=== PATIENT | male | born 1925 | race Caucasian/White ===

== ENCOUNTER 2016-12-16 17:29 | Inpatient (IN) | payer MEDICARE, OTHER ==
[~2016-12-16] VITALS: Ht 167.6 cm; Wt 69.8 kg
[~2016-12-16 17:29] MED LIST: /AMLO25TA PO; /MOXI40TA PO; /PANT40TA PO; /TAMS4CA PO; ADVA230A INH; ALTA10CA3 PO; AMLO25TA PO; AUGM875T27 PO; BENA25CA PO; FLOM5CAP PO; FOLI1TAB2 PO; FOLI1TAB86 PO; IPRASOL4 INH; LASI40TA PO; MUCI600T34 PO; PLAV75TA38 PO; PRED10TA PO; PRED20TA PO; PRED5TAB PO; TIOT18INH INH; TYLE325T5 PO; XOPEAER INH; [UNRECOGNIZED DRUG - CODE] PO; [UNRECOGNIZED DRUG - OTHER] PO; o2; plavix PO
[2016-12-16] MEDS ORDERED: vit b12 (17:55)
[2016-12-16] MEDS ORDERED: LASI20TA PO (17:55)
[2016-12-16] MEDS: IPRATROPIUM 0.5MG/ALBUTEROL 2.5MG INH SOL UD 3ML (DUONEB)(J7620) NEB PRN ×3 (18:18→19:16)
[2016-12-16 18:21] LABS: ABG pH (ARTERIAL) 7.404 UNITS (7.350-7.450)
[2016-12-16 18:22] LABS: ABG BASE EXCESS 2.4 (-2.0-2.0); ABG HCO3 27.5 MEQ/L (22.0-26.0); ABG PARTIAL PRESSURE O2 67.5 mmHg (75.0-100.0); ABG STANDARD HCO3 26.5 MEQ/L (22.0-26.0); ABG TOTAL CO2 28.9 MEQ/L (23.0-31.0)
[2016-12-16 18:34] LABS: MEAN CORPUSCULAR HEMOGLOBIN 32.5 pg (27.0-33.0); MEAN CORPUSCULAR VOLUME 104.7 fl (80.0-96.0); PLATELET COUNT, AUTOMATED 360 k/mm3 (150-450); RED CELL DISTRIBUTION WIDTH 12.4 % (11.5-14.5)
[2016-12-16 18:48] LABS: ALKALINE PHOSPHATASE 86 U/L (45-117); ALT/SGPT 12 U/L (12-78); ANION GAP 5 MEQ/L (8-16); AST/SGOT 12 U/L (15-37); BILIRUBIN,DIRECT 0.1 MG/DL (0.0-0.2); BILIRUBIN,TOTAL 0.4 MG/DL (0.2-1.0); BLOOD UREA NITROGEN 27 MG/DL (7-18); CALCIUM LEVEL 8.6 MG/DL (8.8-10.2); CARBON DIOXIDE LEVEL 32 MEQ/L (21-32); CHLORIDE LEVEL 100 MEQ/L (98-107); CREATININE FOR GFR 1.17 MG/DL (0.70-1.30); GLOMERULAR FILTRATION RATE > 60.0 (>35); GLUCOSE, FASTING 144 MG/DL (83-110); POTASSIUM SERUM 4.8 MEQ/L (3.5-5.1); SODIUM LEVEL 137 MEQ/L (136-145); TOTAL PROTEIN 7.3 GM/DL (6.4-8.2)
--- NOTE | 2016-12-16 19:00 | REP ---
CHEST, TWO VIEWS: REASON: Cough and dyspnea. COMPARISON: 12/30/2014 AP and lateral views were obtained. The technique utilized in obtaining the radiograph has magnified the cardiac silhouette and accentuated the interstitial markings. There is a diffuse increase in the interstitial markings throughout the lung choudhury representing a change from prior exam. There is bilateral perihilar or peribronchial cuffing. There is blunting of the left CP angle status quo. IMPRESSION: Chronic changes as described above, however, I can not rule out the possibility of acute mild interstitial edema superimposed on chronic change and I can not rule out the possibility of an acute left lower lobe pneumonia. Signed by Raman Ruffin DO 12/16/2016 07:04 P
[2016-12-16] MEDS ORDERED: cefTRIAXone SOD 2 GM in D5W MINI-BAG PLUS 50 ML IV ONE (19:45)
[2016-12-16] MEDS ORDERED: DOXYCYCLINE HYCLATE 100 MG in D5W MINI-BAG PLUS 100 ML IV ONE (19:45)
[2016-12-16] MEDS ORDERED: SODIUM CHLORIDE 0.9% 1000 ML IV ONE (20:00)
[2016-12-16] MEDS ORDERED: ACETAMINOPHEN TAB 650MG DOSE (2X325MG) PO ONE (20:00)
[2016-12-16 20:25] LABS: BANDS 3 % (< 11)
[2016-12-16 20:26] LABS: ANISOCYTOSIS 1+; HYPOCHROMASIA 1+
[2016-12-16] MEDS ORDERED: PRED5TA PO (20:26)
[2016-12-16] MEDS ORDERED: ONDANSETRON 4MG/2ML VIAL (J2405) IV PRN (20:30)
[2016-12-16] MEDS ORDERED: IPRATROPIUM 0.5MG/ALBUTEROL 2.5MG INH SOL UD 3ML (DUONEB)(J7620) NEB PRN (20:30)
[2016-12-16] MEDS ORDERED: ONDANSETRON 4 MG TAB (S0181) PO PRN (20:30)
[2016-12-16] MEDS ORDERED: IPRASOL4 INH (20:32)
[2016-12-16] MEDS ORDERED: CLOP75TA2 PO (20:32)
[2016-12-16] MEDS ORDERED: POTA10CA PO (20:32)
[2016-12-16] MEDS ORDERED: VITA100072 PO (20:32)
[2016-12-16] MEDS ORDERED: ACET-654 PO (20:32)
[2016-12-16] MEDS ORDERED: FLOM5CAP PO (20:32)
[2016-12-16] MEDS ORDERED: FOLI1TAB2 PO (20:32)
[2016-12-16] MEDS ORDERED: ASCO500T PO (20:32)
[2016-12-16] MEDS ORDERED: RAMI10CA PO (20:32)
[2016-12-16] MEDS ORDERED: FURO20TA2 PO (20:32)
--- NOTE | 2016-12-16 20:45 | HPEPDOC ---
Medical History and Physical Date of Admission December 16, 2016 at 20:42 History and Physical HISTORY AND PHYSICAL Date of admission: 12/16/2016 PCP: Dr. Deny Chand in [place] Chief complaint: Short of breath HPI: 89-year-old male with chronic hypoxic respiratory failure on 4 L home O2, COPD, CAD status post NC and cardiac stents, history of left lower lobe lung cancer status post RFA, history of prostate cancer status post radiation treatment, history of skin cancer status post resection and graft, hypertension , BPH, TIA who presented with shortness of breath. He usually spends the summer in the [facility], and he had recently relocated up here and had been feeling well. This morning, he noticed that he was short of breath and was coughing quite a bit. He denies any sick contacts, and has continued to use his home O2 at 4 L. He reports that when he began having trouble today, he used his nebulizers, which helped a little bit. He has not found anything that makes the breathing worse. He denies any sick contacts. In the ambulance and in the ER, he has received steroids, antibiotics, and 3 nebulizer treatments. Past medical history: chronic hypoxic respiratory failure on 4 L home O2, COPD, CAD status post NC and cardiac stents, history of left lower lobe lung cancer status post RFA, history of prostate cancer status post radiation treatment, history of skin cancer status post resection and graft, hypertension, BPH, TIA Past surgical history: Cardiac stents, cholecystectomy Family history: multiple types of cancer Social history: The patient's primary residence is in [place]. He fatima up here in [place]. He had recently arrived into the [facility], and he is staying with his grandson. He states that he quit smoking approximately 40 years ago and does not drink any alcohol. Allergies: Celecoxib, codeine Review of systems: General: Positive for fever, negative for chills Eyes: Negative for vision changes and ocular discharge ENT: Negative for sore throat and nose bleed Cardiovascular: Negative for chest pain and palpitations Respiratory: Positive for cough, shortness of breath, wheezing GI: Negative for nausea, vomiting, diarrhea Musculoskeletal: Negative for neck and back pain Skin: Negative for rash Neuro: Negative for headache, dizziness, numbness, tingling Psych: Negative for depression and suicidal ideation Endocrine: Negative for polyuria : Negative for dysuria Heme: Negative for bleeding Home meds: See below Physical exam: Vital signs: Vital Sign - Last 24 Hours 12/16/16 12/16/16 12/16/16 12/16/16 17:44 17:56 17:59 18:14 Temp 100.8 Pulse 112 118 126 Resp 24 B/P (MAP) 182/80 (114) 180/77 (111) Pulse Ox 89 91 12/16/16 12/16/16 12/16/16 12/16/16 18:18 18:19 18:19 18:20 Pulse 124 114 125 Resp 18 Pulse Ox 91 O2 Delivery Nasal Cannula O2 Flow Rate 4.0 12/16/16 12/16/16 12/16/16 12/16/16 18:29 18:34 18:37 18:38 Pulse 128 B/P (MAP) 170/77 (108) Pulse Ox 92 O2 Flow Rate 4.0 FiO2 93 12/16/16 12/16/16 12/16/16 12/16/16 18:44 18:52 18:59 19:07 Pulse 124 126 B/P (MAP) 164/69 (100) 152/74 (100) Pulse Ox 93 92 12/16/16 12/16/16 12/16/16 19:14 19:22 19:36 Temp 100.1 Pulse 132 Resp 22 B/P (MAP) 152/71 (98) Pulse Ox 93 O2 Delivery Nasal Cannula O2 Flow Rate 4.0 Gen.: awake, alert, no acute distress Eyes: Extraocular movements intact, normal sclera ENT: Moist mucous membranes Cardiovascular: Regular rhythm but tachycardic Lungs: Diffuse rhonchi with prolonged expiratory phase Abdomen: Soft, NT/ND, normal BS Musculoskeletal: normal range of motion Extremities: No peripheral edema Neuro: alert and oriented 3, normal speech, no focal deficits Psych: Normal mood with congruent affect Labs and radiology: See below WBC 15.0 Lactate 1.3 Chest x-ray cannot exclude left lower lobe pneumonia Blood cultures pending Respiratory virus panel pending Assessment and plan: 89-year-old male with chronic hypoxic respiratory failure on 4 L home O2, COPD, CAD status post NC and cardiac stents, history of left lower lobe lung cancer status post RFA, history of prostate cancer status post radiation treatment, history of skin cancer status post resection and graft, hypertension, BPH, TIA who presented with shortness of breath and is admitted with community-acquired pneumonia as well as acute COPD exacerbation. 1. Community acquired pneumonia: The patient's chest x-ray is unable to exclude a pneumonia in the left lower lobe. Although this is where he had an RFA for his prior lung cancer, in the setting of a fever and elevated white count, I am concerned that this represents a pneumonia. We will place the patient on Levaquin, and check a sputum culture. Blood cultures and respiratory virus panel are already pending, which we will follow up. We will also place the patient on some gentle IV fluids. 2. COPD exacerbation: I suspect this is secondary to his underlying pneumonia. We will continue him on DuoNeb's and Solu-Medrol. Holding home prednisone. 3. Chronic hypoxic respiratory failure: The patient is currently using his home 4 L, which we'll continue. Holding home prednisone while on Solu-Medrol. 4. CAD status post NC and cardiac stents: The patient denies any chest pain. Continue home Plavix. Patient does not report a beta tyra or a statin, which should be addressed by his primary physicians. 5. BPH: Continue home Flomax. 6. Hypertension: Continue home DOM inhibitor and Lasix. DVT prophylaxis: Lovenox Dispo: admit as an inpatient to the service of Dr. Romero CODE STATUS: Full code Vital Signs Vital Signs Date Time Temp Pulse Resp B/P (MAP) Pulse Ox O2 Delivery O2 Flow Rate FiO2 12/16/16 19:36 100.1 22 Nasal Cannula 4.0 12/16/16 19:14 132 93 12/16/16 18:34 93 Laboratory Data Labs 24H Laboratory Tests 2 12/16/16 17:48: Neutrophils 94H, Band Neutrophils 3, Lymphocytes (Manual) 1L, Monocytes (Manual ) 2, Platelet Estimate NORMAL, Hypochromasia 1+, Anisocytosis 1+, Anion Gap 5L, Glomerular Filtration Rate > 60.0, Lactic Acid Level 1.3, Calcium Level 8.6L, Aspartate Amino Transf (AST/SGOT) 12L, Alanine Aminotransferase (ALT/SGPT) 12, Alkaline Phosphatase 86, Total Bilirubin 0.4, Direct Bilirubin 0.1, Total Creatine Kinase 45, Creatine Kinase MB 1.6, Creatine Kinase MB Relative Index 3.55, Troponin I 0.02, B-Type Natriuretic Peptide 71.6, Total Protein 7.3, Albumin 3.0L, Albumin/Globulin Ratio 0.70L, Thyroid Stimulating Hormone (TSH) 0.397, Thyroxine (T4) 9.0 12/16/16 18:07: Blood Gas Bicarbonate Standard 26.5H, Arterial Blood pH 7.404, Arterial Blood Partial Pressure CO2 45.0, Arterial Blood Partial Pressure O2 67.5L, Arterial Blood Total CO2 28.9, Arterial Blood HCO3 27.5H, Arterial Blood Base Excess 2.4H , Arterial Blood Oxygen Saturation 92.5L CBC/BMP Laboratory Tests 12/16/16 17:48 Red Blood Count 3.20 L, Mean Corpuscular Volume 104.7 H, Mean Corpuscular Hemoglobin 32.5, Mean Corpuscular Hemoglobin Concent 31.0 L, Red Cell Distribution Width 12.4 Microbiology Microbiology 12/16/16 Blood Culture, Received Pending 12/16/16 Blood Culture, Received Pending 12/16/16 Respiratory Virus Panel (PCR) (KATHY), Received Pending Home Medications Scheduled Albuterol/Ipratropium (Ipratropium [place]/Albut 0.5-2.5 (3) mg/3Ml) 1 Deisi Deisi, 1 DEISI INH TID Ascorbic Acid (Ascorbic Acid) 500 Mg Tab, 500 MG PO DAILY Clopidogrel Bisulfate (Clopidogrel) 75 Mg Tab, 75 MG PO DAILY Cyanocobalamin (Vitamin B12) 1,000 Mcg Tab, 1,000 MCG PO DAILY Folic Acid (Folic Acid) 1 Mg Tab, 1 MG PO DAILY Furosemide (Furosemide) 20 Mg Tab, 20 MG PO DAILY Potassium Chloride (Klor-Con M10) 10 Meq Tabcr, 10 MEQ PO DAILY Prednisone (Prednisone) 5 Mg Tab, 5 MG PO QPM DINNER TIME Ramipril (Ramipril) 10 Mg Cap, 10 MG PO DAILY Tamsulosin Hydrochloride (Flomax) 0.4 Mg Cap, 0.4 MG PO QPM DINNER TIME Scheduled PRN Acetaminophen (Acetaminophen) 325 Mg Tab, 650 MG PO Q6H PRN for PAIN Allergies Coded Allergies: Celecoxib (Verified Allergy, Unknown, 10/21/12) Codeine (Verified Adverse Reaction, Mild, NAUSEATED, 10/21/12) AYSHA KRUSE December 16, 2016 20:45
--- NOTE | 2016-12-16 20:53 | ECGEPIP ---
Stationary ECG Study [facility] - ED Test Date: 2016-12-16 Pat Name: CIARA RIVERA Department: Room: - Gender: M Pick Out Hand: rn : 1925 Requested By: YVONNE Atwood Order Number: [id number] Reading MD: Bradley Mendoza Measurements Intervals [place] Rate: 120 P: [place]: 0 QRS: -42 QRSD: 113 T: 35 QT: 286 QTc: 405 Interpretive Statements SINUS TACHYCARDIA WITH FIRST DEGREE AV BLOCK WITH PREMATURE VENTRICULAR CONTRACTIONS LEFT AXIS DEVIATION MODERATE IVCD POSSIBLE ANTERIOR MYOCARDIAL INFARCTION, OF INDETERMINATE AGE Electronically Signed On 12-16-2016 20:53:44 EDT by Bradley Mendoza
[2016-12-16] MEDS: TAMSULOSIN 0.4 MG CAP PO SCH (21:16)
[2016-12-16 21:59] VITALS: BP 131/60
[2016-12-16] MEDS: NS 1,000 ML IV SCH (23:04)
[2016-12-16] MEDS: methylPREDNISolone INJ 125 MG/2 ML VIAL (J2930) IV SCH (23:04)
[2016-12-16 23:59] VITALS: BP 100/59
[2016-12-17] VITALS (7 sets, daily range): BP systolic 117–134; BP diastolic 60–72
[2016-12-17] MEDS: LevoFLOXacin IV 750 MG in APPROPRIATE DILUENT 1 EA IV SCH (00:04)
[2016-12-17] MEDS: IPRATROPIUM 0.5MG/ALBUTEROL 2.5MG INH SOL UD 3ML (DUONEB)(J7620) NEB SCH ×4 (02:00→20:32)
[2016-12-17 05:52] LABS: LARGE UNSTAINED CELL % 0.1 % (0.0-4.0); LYMPH # 0.1 K/mm3 (1.5-4.5); LYMPH % 0.8 % (24.0-44.0); MEAN CORPUSCULAR HEMOGLOBIN 32.7 pg (27.0-33.0); MEAN CORPUSCULAR HGB CONC 31.5 g/dl (32.0-36.5); MEAN CORPUSCULAR VOLUME 103.9 fl (80.0-96.0); MONO # 0.3 K/mm3 (0.0-0.8); NEUTROPHILS # 13.1 K/mm3 (1.8-7.7); PLATELET COUNT, AUTOMATED 314 k/mm3 (150-450); RED CELL DISTRIBUTION WIDTH 12.5 % (11.5-14.5); WHITE BLOOD COUNT 13.5 K/mm3 (4.0-10.0)
[2016-12-17] MEDS: NS 1,000 ML IV SCH ×2 (05:53→18:13)
[2016-12-17] MEDS: methylPREDNISolone INJ 125 MG/2 ML VIAL (J2930) IV SCH ×3 (05:53→21:02)
[2016-12-17 06:08] LABS: ANION GAP 6 MEQ/L (8-16); BLOOD UREA NITROGEN 24 MG/DL (7-18); CALCIUM LEVEL 8.4 MG/DL (8.8-10.2); CARBON DIOXIDE LEVEL 31 MEQ/L (21-32); CHLORIDE LEVEL 102 MEQ/L (98-107); CREATININE FOR GFR 1.16 MG/DL (0.70-1.30); GLOMERULAR FILTRATION RATE > 60.0 (>35); GLUCOSE, FASTING 168 MG/DL (83-110); POTASSIUM SERUM 4.9 MEQ/L (3.5-5.1); SODIUM LEVEL 139 MEQ/L (136-145)
[2016-12-17] MEDS ORDERED: FUROSEMIDE 20 MG TAB PO SCH (09:00)
[2016-12-17] MEDS: ENOXAPARIN 40 MG/0.4 ML SYRINGE (J1650) SC SCH (09:31)
[2016-12-17] MEDS: RAMIPRIL 5 MG CAP PO SCH (09:31)
[2016-12-17] MEDS: ASCORBIC ACID 500 MG TAB PO SCH (09:31)
[2016-12-17] MEDS: FOLIC ACID 1 MG TAB PO SCH (09:31)
[2016-12-17] MEDS: CYANOCOBALAMIN 500 MCG TAB PO SCH (09:31)
[2016-12-17] MEDS: CLOPIDOGREL 75 MG TAB PO SCH (09:31)
[2016-12-17] MEDS: POTASSIUM CHLORIDE 10 MEQ SR TABLET PO SCH (09:31)
--- NOTE | 2016-12-17 15:46 | IPNPDOC ---
Text Note Date of Service The patient was seen on 12/17/16. NOTE Subjective: Pt states dyspnea is improving. Denies CP/palpitations. Objective: Vitals: (see below) General: No acute distress, laying comfortably in bed. HEENT: Moist mucous membranes. Neck: No JVD or lymphadenopathy Cardiac: RRR, No murmurs Pulm: Coarse crackles b/l bases. Mild exp wheezing. No rhonchi Abd: NT/ND + BS Ext: No edema or cyanosis Labs (see below) Images: CXR 12/16/16 IMPRESSION: Chronic changes as described above, however, I can not rule out the possibility of acute mild interstitial edema superimposed on chronic change and I can not rule out the possibility of an acute left lower lobe pneumonia. Assessment/Plan 1. Sepsis 2/2 CAP - improving. On Levaquin and IVF. Afebrile now. 4L NC at baseline. 2. Advanced COPD with exacerbation on 4L NC at home. Cont nebs and treatment of pneumonia. Cont steroids. 3. H/o CAD s/p PCI - on plavix. Need statin and BB addressed by PCP. 4. HTN - on ACEi., d/c lasix for now. DVT prophy: Lovenox. Prognosis guarded given sepsis in setting of severe COPD and h/o CAD. VS,Fishbone, I+O VS, Fishbone, I+O Laboratory Tests 12/16/16 17:48 Red Blood Count 3.20 L, Mean Corpuscular Volume 104.7 H, Mean Corpuscular Hemoglobin 32.5, Mean Corpuscular Hemoglobin Concent 31.0 L, Red Cell Distribution Width 12.4 12/17/16 05:25 Red Blood Count 2.82 L, Mean Corpuscular Volume 103.9 H, Mean Corpuscular Hemoglobin 32.7, Mean Corpuscular Hemoglobin Concent 31.5 L, Red Cell Distribution Width 12.5, Neutrophils (%) (Auto) 97.0 H, Lymphocytes (%) (Auto) 0.8 L, Monocytes (%) (Auto) 2.0, Eosinophils (%) (Auto) 0.0, Basophils (%) (Auto ) 0.0, Neutrophils # (Auto) 13.1 H, Lymphocytes # (Auto) 0.1 L, Monocytes # ( Auto) 0.3, Eosinophils # (Auto) 0.0, Basophils # (Auto) 0.0, Calcium Level 8.4 L Vital Signs Date Time Temp Pulse Resp B/P (MAP) Pulse Ox O2 Delivery O2 Flow Rate FiO2 12/17/16 12:00 97.9 82 18 132/68 (89) 96 Nasal Cannula 4.0 12/16/16 20:30 91 I&O- Last 24 Hours up to 6 AM 12/17/16 05:59 Intake Total 1200 ml Output Total 100 ml Balance 1100 ml ZACARIAS MATTHEW MD December 17, 2016 15:46
[2016-12-17] MEDS: TAMSULOSIN 0.4 MG CAP PO SCH (21:02)
[2016-12-17] MEDS: ACETAMINOPHEN TAB 650MG DOSE (2X325MG) PO PRN (23:04)
[2016-12-18] MEDS: IPRATROPIUM 0.5MG/ALBUTEROL 2.5MG INH SOL UD 3ML (DUONEB)(J7620) NEB SCH ×4 (01:37→23:02)
[2016-12-18 04:05] VITALS: BP 140/76
[2016-12-18] MEDS: methylPREDNISolone INJ 125 MG/2 ML VIAL (J2930) IV SCH ×3 (06:06→21:26)
[2016-12-18 06:17] LABS: ANION GAP 3 MEQ/L (8-16); BLOOD UREA NITROGEN 24 MG/DL (7-18); CALCIUM LEVEL 8.3 MG/DL (8.8-10.2); CARBON DIOXIDE LEVEL 31 MEQ/L (21-32); CHLORIDE LEVEL 104 MEQ/L (98-107); CREATININE FOR GFR 1.04 MG/DL (0.70-1.30); EOS % 0.1 % (0.0-3.0); GLOMERULAR FILTRATION RATE > 60.0 (>35); GLUCOSE, FASTING 131 MG/DL (83-110); LARGE UNSTAINED CELL # 0.1 K/mm3 (0.0-0.4); LARGE UNSTAINED CELL % 0.8 % (0.0-4.0); LYMPH # 0.2 K/mm3 (1.5-4.5); LYMPH % 1.6 % (24.0-44.0); MEAN CORPUSCULAR HGB CONC 31.8 g/dl (32.0-36.5); MEAN CORPUSCULAR VOLUME 103.8 fl (80.0-96.0); MONO # 0.4 K/mm3 (0.0-0.8); MONO % 3.8 % (0.0-5.0); NEUTROPHILS # 8.9 K/mm3 (1.8-7.7); NEUTROPHILS % 93.7 % (36.0-66.0); PLATELET COUNT, AUTOMATED 307 k/mm3 (150-450); POTASSIUM SERUM 4.8 MEQ/L (3.5-5.1); RED CELL DISTRIBUTION WIDTH 12.4 % (11.5-14.5); SODIUM LEVEL 138 MEQ/L (136-145); WHITE BLOOD COUNT 9.4 K/mm3 (4.0-10.0)
[2016-12-18 08:00] VITALS: BP 139/74
[2016-12-18] MEDS: POTASSIUM CHLORIDE 10 MEQ SR TABLET PO SCH (10:38)
[2016-12-18] MEDS: ENOXAPARIN 40 MG/0.4 ML SYRINGE (J1650) SC SCH (10:38)
[2016-12-18] MEDS: CYANOCOBALAMIN 500 MCG TAB PO SCH (10:38)
[2016-12-18] MEDS: CLOPIDOGREL 75 MG TAB PO SCH (10:38)
[2016-12-18] MEDS: FOLIC ACID 1 MG TAB PO SCH (10:39)
[2016-12-18] MEDS: ASCORBIC ACID 500 MG TAB PO SCH (10:39)
[2016-12-18] MEDS: RAMIPRIL 5 MG CAP PO SCH (10:39)
[2016-12-18 11:30] VITALS: BP 132/60
--- NOTE | 2016-12-18 14:33 | IPNPDOC ---
Text Note Date of Service The patient was seen on 12/18/16. NOTE Subjective: Pt states dyspnea is improving. Denies CP/palpitations. Objective: Vitals: (see below) General: No acute distress, laying comfortably in bed. HEENT: Moist mucous membranes. Neck: No JVD or lymphadenopathy Cardiac: RRR, No murmurs Pulm: Coarse crackles b/l bases. Mild exp wheezing. No rhonchi Abd: NT/ND + BS Ext: No edema or cyanosis Labs (see below) Images: CXR 12/16/16 IMPRESSION: Chronic changes as described above, however, I can not rule out the possibility of acute mild interstitial edema superimposed on chronic change and I can not rule out the possibility of an acute left lower lobe pneumonia. Assessment/Plan 1. Sepsis 2/2 CAP - improving. On Levaquin and IVF. Afebrile now. 4L NC at baseline. Leukocytosis/CRP improving. Symptomatically improved. Sputum cx pending. 2. Advanced COPD with exacerbation on 4L NC at home. Cont nebs and treatment of pneumonia. Cont steroids. 3. H/o CAD s/p PCI - on plavix. started on statin and metoprolol. 4. HTN - on ACEi., d/c lasix for now. DVT prophy: Lovenox. Prognosis guarded given sepsis in setting of severe COPD and h/o CAD. VS,Fishbone, I+O VS, Fishbone, I+O Laboratory Tests 12/18/16 05:33 Red Blood Count 2.72 L, Mean Corpuscular Volume 103.8 H, Mean Corpuscular Hemoglobin 33.0, Mean Corpuscular Hemoglobin Concent 31.8 L, Red Cell Distribution Width 12.4, Neutrophils (%) (Auto) 93.7 H, Lymphocytes (%) (Auto) 1.6 L, Monocytes (%) (Auto) 3.8, Eosinophils (%) (Auto) 0.1, Basophils (%) (Auto ) 0.0, Neutrophils # (Auto) 8.9 H, Lymphocytes # (Auto) 0.2 L, Monocytes # (Auto ) 0.4, Eosinophils # (Auto) 0.0, Basophils # (Auto) 0.0, Calcium Level 8.3 L Vital Signs Date Time Temp Pulse Resp B/P (MAP) Pulse Ox O2 Delivery O2 Flow Rate FiO2 12/18/16 11:30 99.2 84 18 132/60 (84) 97 Nasal Cannula 4.0 12/16/16 20:30 91 I&O- Last 24 Hours up to 6 AM 12/18/16 06:00 Intake Total 2100 ml Output Total 510 ml Balance 1590 ml ZACARIAS MATTHEW MD Dec 18, 2016 14:33
[2016-12-18 16:00] VITALS: BP 149/76
[2016-12-18] MEDS: METOPROLOL SUCC *XL* 12.5MG PER 1/2 TAB (TopROL *XL*) PO SCH (17:02)
[2016-12-18 19:27] VITALS: BP 168/82
[2016-12-18 20:23] VITALS: BP 140/82
--- NOTE | 2016-12-18 20:41 | ECGEPIP ---
Stationary ECG Study [facility] Test Date: 2016-12-17 Pat Name: CIARA RIVERA Department: Room: [place] [address] Gender: M Ibm Bpm Developer: AMBAR : 1925 Requested By: ZACARIAS MATTHEW Order Number: [id number] Reading MD: Robert Robert Measurements Intervals [place] Rate: 89 P: 89 [place]: 256 QRS: -41 QRSD: 109 T: 22 QT: 358 QTc: 436 Interpretive Statements SINUS RHYTHM WITH FIRST DEGREE AV BLOCK MARKED LEFT AXIS DEVIATION ANTEROSEPTAL MYOCARDIAL INFARCTION, OF INDETERMINATE AGE Electronically Signed On 12-18-2016 20:41:32 EDT by Robert Robert
[2016-12-18] MEDS: ATORVASTATIN 10 MG TAB PO SCH (21:26)
[2016-12-18] MEDS: TAMSULOSIN 0.4 MG CAP PO SCH (21:26)
[2016-12-18] MEDS: LevoFLOXacin IV 750 MG in APPROPRIATE DILUENT 1 EA IV SCH (23:16)
[2016-12-18] MEDS: ACETAMINOPHEN TAB 650MG DOSE (2X325MG) PO PRN (23:16)
[2016-12-19] MEDS: IPRATROPIUM 0.5MG/ALBUTEROL 2.5MG INH SOL UD 3ML (DUONEB)(J7620) NEB SCH ×5 (01:23→19:37)
[2016-12-19] MEDS: methylPREDNISolone INJ 125 MG/2 ML VIAL (J2930) IV SCH ×3 (05:16→22:21)
[2016-12-19 05:58] LABS: EOS % 0.1 % (0.0-3.0); LARGE UNSTAINED CELL # 0.1 K/mm3 (0.0-0.4); LARGE UNSTAINED CELL % 0.6 % (0.0-4.0); LYMPH # 0.2 K/mm3 (1.5-4.5); LYMPH % 1.5 % (24.0-44.0); MEAN CORPUSCULAR HEMOGLOBIN 32.5 pg (27.0-33.0); MEAN CORPUSCULAR HGB CONC 31.3 g/dl (32.0-36.5); MEAN CORPUSCULAR VOLUME 103.9 fl (80.0-96.0); MONO # 0.4 K/mm3 (0.0-0.8); MONO % 3.2 % (0.0-5.0); NEUTROPHILS # 11.3 K/mm3 (1.8-7.7); NEUTROPHILS % 94.6 % (36.0-66.0); PLATELET COUNT, AUTOMATED 329 k/mm3 (150-450); RED CELL DISTRIBUTION WIDTH 12.5 % (11.5-14.5); WHITE BLOOD COUNT 11.9 K/mm3 (4.0-10.0)
[2016-12-19 06:00] VITALS: BP 148/82
[2016-12-19 06:13] LABS: ANION GAP 7 MEQ/L (8-16); BLOOD UREA NITROGEN 28 MG/DL (7-18); CALCIUM LEVEL 8.4 MG/DL (8.8-10.2); CARBON DIOXIDE LEVEL 29 MEQ/L (21-32); CHLORIDE LEVEL 103 MEQ/L (98-107); CREATININE FOR GFR 1.15 MG/DL (0.70-1.30); GLOMERULAR FILTRATION RATE > 60.0 (>35); GLUCOSE, FASTING 135 MG/DL (83-110); MAGNESIUM LEVEL 2.1 MG/DL (1.8-2.4); POTASSIUM SERUM 4.7 MEQ/L (3.5-5.1); SODIUM LEVEL 139 MEQ/L (136-145)
[2016-12-19 07:14] VITALS: O2SAT 97
[2016-12-19] MEDS ORDERED: NS 1,000 ML IV SCH (08:15)
[2016-12-19] MEDS: ENOXAPARIN 40 MG/0.4 ML SYRINGE (J1650) SC SCH (09:03)
[2016-12-19] MEDS: POTASSIUM CHLORIDE 10 MEQ SR TABLET PO SCH (09:04)
[2016-12-19] MEDS: RAMIPRIL 5 MG CAP PO SCH (09:04)
[2016-12-19] MEDS: METOPROLOL SUCC *XL* 12.5MG PER 1/2 TAB (TopROL *XL*) PO SCH (09:04)
[2016-12-19] MEDS: CYANOCOBALAMIN 500 MCG TAB PO SCH (09:04)
[2016-12-19] MEDS: CLOPIDOGREL 75 MG TAB PO SCH (09:05)
[2016-12-19] MEDS: FOLIC ACID 1 MG TAB PO SCH (09:05)
[2016-12-19] MEDS: ASCORBIC ACID 500 MG TAB PO SCH (09:05)
[2016-12-19] MEDS: guaiFENesin ER 600 MG TAB PO SCH ×2 (10:16→20:34)
--- NOTE | 2016-12-19 10:37 | REP ---
PORTABLE CHEST, ONE VIEW: HISTORY: Congestion. COMPARISON: 12/16/2016 A diffuse increase in interstitial markings is present in the lungs consistent with chronic interstitial fibrosis. Increased density is present in the left lower lobe consistent with atelectasis or infiltrate. The heart is normal in size. The pulmonary vasculature is normal in appearance. IMPRESSION: Chronic interstitial fibrosis. Left lower lobe atelectasis or infiltrate. Signed by Ernst Selby MD 12/19/2016 10:39 A
--- NOTE | 2016-12-19 10:43 | IPNPDOC ---
Text Note Date of Service The patient was seen on 12/19/16. NOTE Subjective: Mild SOB today. Denies CP/palpitations. Objective: Vitals: (see below) General: No acute distress, laying comfortably in bed. HEENT: Moist mucous membranes. Neck: No JVD or lymphadenopathy Cardiac: RRR, No murmurs Pulm: Coarse crackles b/l bases. Mild exp wheezing. + rhonchi Abd: NT/ND + BS Ext: No edema or cyanosis Labs (see below) Images: CXR 12/16/16 IMPRESSION: Chronic changes as described above, however, I can not rule out the possibility of acute mild interstitial edema superimposed on chronic change and I can not rule out the possibility of an acute left lower lobe pneumonia. Assessment/Plan 1. Sepsis 2/2 CAP - improving. On Levaquin and IVF. Afebrile now. 4L NC at baseline. Leukocytosis/CRP improving. Symptomatically improved. Sputum cx pending. Start mucinex. Increase nebs to q4h. 2. Advanced COPD with exacerbation on 4L NC at home. Cont nebs and treatment of pneumonia. Cont steroids. 3. H/o CAD s/p PCI - on plavix. On statin and metoprolol. 4. HTN - on ACEi., Restart lasix DVT prophy: Lovenox. Prognosis guarded given sepsis in setting of severe COPD and h/o CAD. VS,Fishbone, I+O VS, Fishbone, I+O Laboratory Tests 12/19/16 05:42 Red Blood Count 2.93 L, Mean Corpuscular Volume 103.9 H, Mean Corpuscular Hemoglobin 32.5, Mean Corpuscular Hemoglobin Concent 31.3 L, Red Cell Distribution Width 12.5, Neutrophils (%) (Auto) 94.6 H, Lymphocytes (%) (Auto) 1.5 L, Monocytes (%) (Auto) 3.2, Eosinophils (%) (Auto) 0.1, Basophils (%) (Auto ) 0.0, Neutrophils # (Auto) 11.3 H, Lymphocytes # (Auto) 0.2 L, Monocytes # ( Auto) 0.4, Eosinophils # (Auto) 0.0, Basophils # (Auto) 0.0, Calcium Level 8.4 L Vital Signs Date Time Temp Pulse Resp B/P (MAP) Pulse Ox O2 Delivery O2 Flow Rate FiO2 12/19/16 09:04 76 154/81 12/19/16 07:14 97 Nasal Cannula 4.0 12/19/16 06:00 97.7 19 12/16/16 20:30 91 I&O- Last 24 Hours up to 6 AM 12/19/16 06:00 Intake Total 1800 ml Output Total 675 ml Balance 1125 ml ZACARIAS MATTHEW MD Dec 19, 2016 10:43
[2016-12-19] MEDS ORDERED: FUROSEMIDE 40 MG/4 ML VIAL (J1940) IV ONE (11:00)
[2016-12-19 14:00] VITALS: BP 137/68
[2016-12-19] MEDS ORDERED: SLF 3 ML SYR IV PRN (14:45)
[2016-12-19] MEDS: ATORVASTATIN 10 MG TAB PO SCH (20:34)
[2016-12-19] MEDS: TAMSULOSIN 0.4 MG CAP PO SCH (20:34)
[2016-12-19 22:00] VITALS: BP 147/73
[2016-12-19] MEDS: SLF 3 ML SYR IV SCH (22:00)
[2016-12-19] MEDS: ACETAMINOPHEN TAB 650MG DOSE (2X325MG) PO PRN (23:21)
[2016-12-20] MEDS: IPRATROPIUM 0.5MG/ALBUTEROL 2.5MG INH SOL UD 3ML (DUONEB)(J7620) NEB SCH ×6 (00:19→20:11)
[2016-12-20 05:49] LABS: EOS % 0.3 % (0.0-3.0); LARGE UNSTAINED CELL # 0.1 K/mm3 (0.0-0.4); LARGE UNSTAINED CELL % 0.5 % (0.0-4.0); LYMPH # 0.2 K/mm3 (1.5-4.5); LYMPH % 1.4 % (24.0-44.0); MEAN CORPUSCULAR HEMOGLOBIN 32.2 pg (27.0-33.0); MEAN CORPUSCULAR HGB CONC 31.5 g/dl (32.0-36.5); MEAN CORPUSCULAR VOLUME 102.3 fl (80.0-96.0); MONO # 0.5 K/mm3 (0.0-0.8); MONO % 4.2 % (0.0-5.0); NEUTROPHILS % 93.5 % (36.0-66.0); PLATELET COUNT, AUTOMATED 326 k/mm3 (150-450); RED CELL DISTRIBUTION WIDTH 12.4 % (11.5-14.5); WHITE BLOOD COUNT 11.7 K/mm3 (4.0-10.0)
[2016-12-20 06:00] VITALS: BP 151/86
[2016-12-20] MEDS: SLF 3 ML SYR IV SCH ×3 (06:00→21:12)
[2016-12-20] MEDS: methylPREDNISolone INJ 125 MG/2 ML VIAL (J2930) IV SCH ×3 (06:04→21:12)
[2016-12-20 06:47] LABS: CALCIUM LEVEL 8.7 MG/DL (8.8-10.2); CREATININE FOR GFR 1.23 MG/DL (0.70-1.30); MAGNESIUM LEVEL 2.1 MG/DL (1.8-2.4); POTASSIUM SERUM 4.4 MEQ/L (3.5-5.1)
[2016-12-20] MEDS ORDERED: FUROSEMIDE 20 MG TAB PO SCH (09:00)
[2016-12-20 09:40] VITALS: BP 130/74
[2016-12-20] MEDS ORDERED: FUROSEMIDE 40 MG/4 ML VIAL (J1940) IV ONE (10:30)
[2016-12-20] MEDS: ENOXAPARIN 40 MG/0.4 ML SYRINGE (J1650) SC SCH (10:53)
[2016-12-20] MEDS: FOLIC ACID 1 MG TAB PO SCH (10:54)
[2016-12-20] MEDS: guaiFENesin ER 600 MG TAB PO SCH ×2 (10:55→21:12)
[2016-12-20] MEDS: CLOPIDOGREL 75 MG TAB PO SCH (10:56)
[2016-12-20] MEDS: POTASSIUM CHLORIDE 10 MEQ SR TABLET PO SCH (10:57)
[2016-12-20] MEDS: CYANOCOBALAMIN 500 MCG TAB PO SCH (10:57)
[2016-12-20] MEDS: RAMIPRIL 5 MG CAP PO SCH (10:58)
[2016-12-20] MEDS: ASCORBIC ACID 500 MG TAB PO SCH (10:59)
[2016-12-20] MEDS: METOPROLOL SUCC *XL* 12.5MG PER 1/2 TAB (TopROL *XL*) PO SCH (10:59)
--- NOTE | 2016-12-20 11:12 | IPNPDOC ---
Text Note Date of Service The patient was seen on 12/20/16. NOTE Subjective: Had episode of hypoxia this am, and now back to baseline. Denies CP/ palpitations. Objective: Vitals: (see below) General: No acute distress, laying comfortably in bed. HEENT: Moist mucous membranes. Neck: No JVD or lymphadenopathy Cardiac: RRR, No murmurs Pulm: Coarse crackles b/l bases. Mild exp wheezing. + rhonchi Abd: NT/ND + BS Ext: No edema or cyanosis Labs (see below) Images: CXR 12/16/16 IMPRESSION: Chronic changes as described above, however, I can not rule out the possibility of acute mild interstitial edema superimposed on chronic change and I can not rule out the possibility of an acute left lower lobe pneumonia. Assessment/Plan 1. Sepsis 2/2 CAP - improving. On Levaquin. s/p IVF Afebrile now. 4L NC at baseline. Leukocytosis/CRP improving. Symptomatically improved. Sputum cx pending. Start mucinex. Increase nebs to q4h. 2. Advanced COPD with exacerbation on 4L NC at home. Cont nebs and treatment of pneumonia. Cont steroids. 3. H/o CAD s/p PCI - on plavix. On statin and metoprolol. 4. HTN - on ACEi., Restart lasix 5. ?CHF - on lasix, will continue. 6. H/o Left lung cancer s/p resection- CT chest as patient with PNA on same side. DVT prophy: Lovenox. Prognosis guarded given sepsis in setting of severe COPD and h/o CAD. OOB ambulate. VS,Fishbone, I+O VS, Fishbone, I+O Laboratory Tests 12/20/16 05:32 Red Blood Count 3.08 L, Mean Corpuscular Volume 102.3 H, Mean Corpuscular Hemoglobin 32.2, Mean Corpuscular Hemoglobin Concent 31.5 L, Red Cell Distribution Width 12.4, Neutrophils (%) (Auto) 93.5 H, Lymphocytes (%) (Auto) 1.4 L, Monocytes (%) (Auto) 4.2, Eosinophils (%) (Auto) 0.3, Basophils (%) (Auto ) 0.0, Neutrophils # (Auto) 11.0 H, Lymphocytes # (Auto) 0.2 L, Monocytes # ( Auto) 0.5, Eosinophils # (Auto) 0.0, Basophils # (Auto) 0.0, Calcium Level 8.7 L Vital Signs Date Time Temp Pulse Resp B/P (MAP) Pulse Ox O2 Delivery O2 Flow Rate FiO2 12/20/16 10:59 94 130/74 12/20/16 09:40 98.8 24 94 Nasal Cannula 4.0 12/16/16 20:30 91 I&O- Last 24 Hours up to 6 AM 12/20/16 06:00 Intake Total 600 ml Output Total 1250 ml Balance -650 ml ZACARIAS MATTHEW MD Dec 20, 2016 11:12
[2016-12-20] MEDS ORDERED: ISOVUE-370 76% 100ML VIAL (Q9967) As Ordered ONE (11:22)
[2016-12-20 13:10] VITALS: BP 134/70
--- NOTE | 2016-12-20 15:04 | REP ---
CT CHEST WITH CONTRAST: HISTORY: Pneumonia. CONTRAST: Isovue-370, 75 mL. COMPARISON: 12/24/2014 Patchy density is present in the left lower lobe, consistent with an infiltrate. There is bronchiectasis in the lower lobes. There is no pleural effusion. A minimal increase in interstitial markings is present in the lungs. Bullae are present in the upper lobes. An enlarged lymph node 2 cm in width is present in the mediastinum. Small lymph nodes, less than 1 cm in width are present in the mediastinum. Atherosclerotic calcification is present in the thoracic aorta. Degenerative change is present in the thoracic spine. IMPRESSION: 1. Left lower lobe infiltrate. 2. Bilateral lower lobe bronchiectasis. 3. Findings consistent with COPD. Signed by Ernst Selby MD 12/20/2016 03:05 P
[2016-12-20] MEDS: TAMSULOSIN 0.4 MG CAP PO SCH (21:12)
[2016-12-20] MEDS: ATORVASTATIN 10 MG TAB PO SCH (21:12)
[2016-12-20 22:00] VITALS: BP 150/76
[2016-12-20] MEDS: ACETAMINOPHEN TAB 650MG DOSE (2X325MG) PO PRN (23:10)
[2016-12-21] MEDS: IPRATROPIUM 0.5MG/ALBUTEROL 2.5MG INH SOL UD 3ML (DUONEB)(J7620) NEB SCH ×7 (04:00→23:34)
[2016-12-21] MEDS: methylPREDNISolone INJ 125 MG/2 ML VIAL (J2930) IV SCH ×3 (05:09→22:47)
[2016-12-21] MEDS: LevoFLOXacin 750 MG TABLET PO SCH (05:09)
[2016-12-21] MEDS: SLF 3 ML SYR IV SCH ×3 (05:09→22:48)
[2016-12-21 05:49] LABS: EOS % 0.1 % (0.0-3.0); LARGE UNSTAINED CELL # 0.1 K/mm3 (0.0-0.4); LARGE UNSTAINED CELL % 0.7 % (0.0-4.0); LYMPH # 0.2 K/mm3 (1.5-4.5); LYMPH % 1.4 % (24.0-44.0); MEAN CORPUSCULAR HEMOGLOBIN 32.8 pg (27.0-33.0); MEAN CORPUSCULAR HGB CONC 31.9 g/dl (32.0-36.5); MEAN CORPUSCULAR VOLUME 102.9 fl (80.0-96.0); MONO # 0.4 K/mm3 (0.0-0.8); NEUTROPHILS # 10.2 K/mm3 (1.8-7.7); NEUTROPHILS % 93.7 % (36.0-66.0); PLATELET COUNT, AUTOMATED 335 k/mm3 (150-450); RED CELL DISTRIBUTION WIDTH 12.6 % (11.5-14.5); WHITE BLOOD COUNT 10.9 K/mm3 (4.0-10.0)
[2016-12-21 05:59] LABS: CALCIUM LEVEL 8.7 MG/DL (8.8-10.2); CREATININE FOR GFR 1.28 MG/DL (0.70-1.30); GLOMERULAR FILTRATION RATE 56.3 (>35); MAGNESIUM LEVEL 2.3 MG/DL (1.8-2.4); POTASSIUM SERUM 4.5 MEQ/L (3.5-5.1)
[2016-12-21 06:00] VITALS: BP 152/76
[2016-12-21] MEDS: RAMIPRIL 5 MG CAP PO SCH (08:41)
[2016-12-21] MEDS: METOPROLOL SUCC *XL* 12.5MG PER 1/2 TAB (TopROL *XL*) PO SCH (08:42)
[2016-12-21] MEDS: guaiFENesin ER 600 MG TAB PO SCH ×2 (08:42→20:06)
[2016-12-21] MEDS: CYANOCOBALAMIN 500 MCG TAB PO SCH (08:42)
[2016-12-21] MEDS: POTASSIUM CHLORIDE 10 MEQ SR TABLET PO SCH (08:43)
[2016-12-21] MEDS: ASCORBIC ACID 500 MG TAB PO SCH (08:43)
[2016-12-21] MEDS: ENOXAPARIN 40 MG/0.4 ML SYRINGE (J1650) SC SCH (08:43)
[2016-12-21] MEDS: CLOPIDOGREL 75 MG TAB PO SCH (08:43)
[2016-12-21] MEDS: FOLIC ACID 1 MG TAB PO SCH (08:43)
--- NOTE | 2016-12-21 13:11 | IPNPDOC ---
Text Note Date of Service The patient was seen on 12/21/16. NOTE Subjective: Denies SOB/cough. Denies CP/palpitations. States his breathing is better than his baseline. Objective: Vitals: (see below) General: No acute distress, laying comfortably in bed. HEENT: Moist mucous membranes. Neck: No JVD or lymphadenopathy Cardiac: RRR, No murmurs Pulm: Coarse crackles b/l bases. No wheezing/rhonchi. Improved from yesterday. Abd: NT/ND + BS Ext: No edema or cyanosis Labs (see below) Images: CXR 12/16/16 IMPRESSION: Chronic changes as described above, however, I can not rule out the possibility of acute mild interstitial edema superimposed on chronic change and I can not rule out the possibility of an acute left lower lobe pneumonia. Assessment/Plan 1. Sepsis 2/2 CAP - improved. On Levaquin. s/p IVF Afebrile now. 4L NC at baseline. Leukocytosis/CRP improving. Symptomatically improved. Cont mucinex/ nebs. 2. Advanced COPD with exacerbation on 4L NC at home. Improved. Cont nebs and treatment of pneumonia. Cont steroids. 3. H/o CAD s/p PCI - on plavix. On statin and metoprolol. 4. HTN - on ACEi., Restart lasix 5. ?CHF - on lasix, will continue. 6. H/o Left lung cancer s/p resection- CT chest with no recurrent mass. LLQ infiltrate noted. DVT prophy: Lovenox. Prognosis guarded. OOB ambulate. Plan to d/c in the next 24 hrs. VS,Maxim, I+O VS, Maxim, I+O Laboratory Tests 12/21/16 05:18 Red Blood Count 3.28 L, Mean Corpuscular Volume 102.9 H, Mean Corpuscular Hemoglobin 32.8, Mean Corpuscular Hemoglobin Concent 31.9 L, Red Cell Distribution Width 12.6, Neutrophils (%) (Auto) 93.7 H, Lymphocytes (%) (Auto) 1.4 L, Monocytes (%) (Auto) 4.0, Eosinophils (%) (Auto) 0.1, Basophils (%) (Auto ) 0.0, Neutrophils # (Auto) 10.2 H, Lymphocytes # (Auto) 0.2 L, Monocytes # ( Auto) 0.4, Eosinophils # (Auto) 0.0, Basophils # (Auto) 0.0, Calcium Level 8.7 L Vital Signs Date Time Temp Pulse Resp B/P (MAP) Pulse Ox O2 Delivery O2 Flow Rate FiO2 12/21/16 08:45 Nasal Cannula 4.0 12/21/16 08:42 93 165/82 12/21/16 06:00 98.2 21 98 12/16/16 20:30 91 I&O- Last 24 Hours up to 6 AM 12/21/16 06:00 Intake Total 1530 ml Output Total 3250 ml Balance -1720 ml ZACARIAS MATTHEW MD Dec 21, 2016 13:10
[2016-12-21 14:00] VITALS: BP 127/71
[2016-12-21] MEDS: TAMSULOSIN 0.4 MG CAP PO SCH (20:06)
[2016-12-21] MEDS: ATORVASTATIN 10 MG TAB PO SCH (20:07)
[2016-12-21 22:00] VITALS: BP 135/72
[2016-12-21] MEDS: ACETAMINOPHEN TAB 650MG DOSE (2X325MG) PO PRN (22:48)
[2016-12-22] MEDS: IPRATROPIUM 0.5MG/ALBUTEROL 2.5MG INH SOL UD 3ML (DUONEB)(J7620) NEB SCH ×5 (04:00→19:47)
[2016-12-22 05:54] LABS: EOS % 0.1 % (0.0-3.0); LARGE UNSTAINED CELL # 0.1 K/mm3 (0.0-0.4); LARGE UNSTAINED CELL % 0.8 % (0.0-4.0); LYMPH # 0.3 K/mm3 (1.5-4.5); LYMPH % 1.7 % (24.0-44.0); MEAN CORPUSCULAR HEMOGLOBIN 32.6 pg (27.0-33.0); MEAN CORPUSCULAR HGB CONC 31.9 g/dl (32.0-36.5); MEAN CORPUSCULAR VOLUME 102.4 fl (80.0-96.0); MONO # 0.6 K/mm3 (0.0-0.8); MONO % 4.8 % (0.0-5.0); NEUTROPHILS # 11.1 K/mm3 (1.8-7.7); NEUTROPHILS % 92.6 % (36.0-66.0); PLATELET COUNT, AUTOMATED 311 k/mm3 (150-450); RED CELL DISTRIBUTION WIDTH 12.4 % (11.5-14.5)
[2016-12-22] MEDS: SLF 3 ML SYR IV SCH ×3 (05:55→20:42)
[2016-12-22] MEDS: methylPREDNISolone INJ 125 MG/2 ML VIAL (J2930) IV SCH ×3 (05:55→21:34)
[2016-12-22 06:00] VITALS: BP 148/80
[2016-12-22 06:02] LABS: ANION GAP 3 MEQ/L (8-16); BLOOD UREA NITROGEN 44 MG/DL (7-18); CALCIUM LEVEL 8.9 MG/DL (8.8-10.2); CARBON DIOXIDE LEVEL 39 MEQ/L (21-32); CHLORIDE LEVEL 98 MEQ/L (98-107); CREATININE FOR GFR 1.21 MG/DL (0.70-1.30); GLOMERULAR FILTRATION RATE > 60.0 (>35); GLUCOSE, FASTING 161 MG/DL (83-110); MAGNESIUM LEVEL 2.3 MG/DL (1.8-2.4); POTASSIUM SERUM 4.9 MEQ/L (3.5-5.1); SODIUM LEVEL 140 MEQ/L (136-145)
[2016-12-22] MEDS: RAMIPRIL 5 MG CAP PO SCH (09:21)
[2016-12-22] MEDS: guaiFENesin ER 600 MG TAB PO SCH ×2 (09:21→20:41)
[2016-12-22] MEDS: CLOPIDOGREL 75 MG TAB PO SCH (09:21)
[2016-12-22] MEDS: ASCORBIC ACID 500 MG TAB PO SCH (09:21)
[2016-12-22] MEDS: CYANOCOBALAMIN 500 MCG TAB PO SCH (09:21)
[2016-12-22] MEDS: ENOXAPARIN 40 MG/0.4 ML SYRINGE (J1650) SC SCH (09:22)
[2016-12-22] MEDS: FOLIC ACID 1 MG TAB PO SCH (09:22)
[2016-12-22] MEDS: POTASSIUM CHLORIDE 10 MEQ SR TABLET PO SCH (09:22)
[2016-12-22] MEDS: METOPROLOL SUCC *XL* 12.5MG PER 1/2 TAB (TopROL *XL*) PO SCH (09:22)
[2016-12-22] MEDS ORDERED: METO25TA74 PO (11:03)
[2016-12-22] MEDS ORDERED: GUAI60TA PO (11:03)
[2016-12-22] MEDS ORDERED: PRED10TA PO (11:03)
[2016-12-22] MEDS ORDERED: LEVA750T PO (11:03)
[2016-12-22 14:00] VITALS: BP 127/78
--- NOTE | 2016-12-22 14:28 | DS.PDOC ---
Discharge Summary General Date of Admission December 16, 2016 at 20:42 Date of Discharge 12/22/16 Attending Physician: ZACARIAS MATTHEW MD Discharge Summary PROCEDURES PERFORMED DURING STAY: None. ADMITTING/DISCHARGE DIAGNOSES: 1. Sepsis 2/2 CAP 2. Advanced COPD with exacerbation on 4L NC at home 3. H/o CAD s/p PCI 4. HTN 5. ? h/o CHF 6. H/o Left lung cancer s/p resection 7. H/o TIA 8. H/o BPH COMPLICATIONS/CHIEF COMPLAINT: Pneumonia. HISTORY OF PRESENT ILLNESS/HOSPITAL COURSE: . His 89-year-old male past history of lung cancer status post resection, history of CAD status post PCI, advanced end-stage COPD on 4 L NC who presents complaining of shortness of breath and cough with the need to use multiple nebulizers. Patient was found to have sepsis secondary to community-acquired pneumonia, for which she history with fluids, antibiotics, and cultures are sent. During the course of hospitalization, patient was treated for acute exacerbation of his end-stage COPD, steroids and nebulizers, and tolerated therapy well. Patient maintained hemodynamically stable during the course of hospitalization. During his treatment for sepsis, patient was deconditioned and was evaluated by physical therapy, who recommended that the patient had additional physicians prior to discharge. DISCHARGE MEDICATIONS: Please see below. ALLERGIES: Please see below. PHYSICAL EXAMINATION ON DISCHARGE: Vitals: (see below) General: No acute distress, laying comfortably in bed. HEENT: Moist mucous membranes. Neck: No JVD or lymphadenopathy Cardiac: RRR, No murmurs Pulm: Coarse crackles b/l bases. No wheezing/rhonchi. Improved from yesterday. Abd: NT/ND + BS Ext: No edema or cyanosis LABORATORY DATA: Please see below. IMAGING: CXR 12/16/16 IMPRESSION: Chronic changes as described above, however, I can not rule out the possibility of acute mild interstitial edema superimposed on chronic change and I can not rule out the possibility of an acute left lower lobe pneumonia. CT Chest 12/22/16 IMPRESSION: 1. Left lower lobe infiltrate. 2. Bilateral lower lobe bronchiectasis. 3. Findings consistent with COPD. PROGNOSIS: Guarded ACTIVITY: As tolerated. DIET: Low Na/COPD DISCHARGE PLAN/DISPOSITION: D/c home with home care DISCHARGE INSTRUCTIONS: 1. F/u with PCP and Pulmonary in 1-2 weeks. DISCHARGE CONDITION: Stable. TIME SPENT ON DISCHARGE: Greater than 30 minutes. Vital Signs/I&Os Vital Signs Date Time Temp Pulse Resp B/P (MAP) Pulse Ox O2 Delivery O2 Flow Rate FiO2 12/22/16 09:22 92 148/80 12/22/16 09:20 Nasal Cannula 4.0 12/22/16 06:00 98.1 22 90 12/16/16 20:30 91 I&O- Last 24 Hours up to 6 AM 12/22/16 06:00 Intake Total 900 ml Output Total 750 ml Balance 150 ml Laboratory Data Labs 24H Laboratory Tests 2 12/22/16 05:19: White Blood Count 12.0H, Red Blood Count 3.13L, Hemoglobin 10.2L, Hematocrit 32.1L, Mean Corpuscular Volume 102.4H, Mean Corpuscular Hemoglobin 32.6, Mean Corpuscular Hemoglobin Concent 31.9L, Red Cell Distribution Width 12.4, Platelet Count 311, Neutrophils (%) (Auto) 92.6H, Lymphocytes (%) (Auto) 1.7L, Monocytes (%) (Auto) 4.8, Eosinophils (%) (Auto) 0.1, Basophils (%) (Auto) 0.0, Neutrophils # (Auto) 11.1H, Lymphocytes # (Auto) 0.3L, Monocytes # (Auto) 0.6, Eosinophils # (Auto) 0.0, Basophils # (Auto) 0.0, Large Unclassified Cells % 0.8 , Large Unclassified Cells # 0.1, Anion Gap 3L, Glomerular Filtration Rate > 60.0, Blood Urea Nitrogen 44H, Creatinine 1.21, Sodium Level 140, Potassium Level 4.9, Chloride Level 98, Carbon Dioxide Level 39H, Calcium Level 8.9, Magnesium Level 2.3, C-Reactive Protein, Quantitative 0.59H CBC/BMP Laboratory Tests 12/22/16 05:19 Red Blood Count 3.13 L, Mean Corpuscular Volume 102.4 H, Mean Corpuscular Hemoglobin 32.6, Mean Corpuscular Hemoglobin Concent 31.9 L, Red Cell Distribution Width 12.4, Neutrophils (%) (Auto) 92.6 H, Lymphocytes (%) (Auto) 1.7 L, Monocytes (%) (Auto) 4.8, Eosinophils (%) (Auto) 0.1, Basophils (%) (Auto ) 0.0, Neutrophils # (Auto) 11.1 H, Lymphocytes # (Auto) 0.3 L, Monocytes # ( Auto) 0.6, Eosinophils # (Auto) 0.0, Basophils # (Auto) 0.0, Calcium Level 8.9 Microbiology Microbiology 12/16/16 Blood Culture - Final, Complete NO GROWTH AFTER 5 DAYS 12/16/16 Blood Culture - Final, Complete NO GROWTH AFTER 5 DAYS 12/17/16 Gram Stain - Final, Complete 12/17/16 Sputum Culture - Final, Complete Yeast Like Organism 12/16/16 Respiratory Virus Panel (PCR) (KATHY) - Final, Complete Discharge Medications Scheduled Albuterol/Ipratropium (Ipratropium [place]/Albut 0.5-2.5 (3) mg/3Ml) 1 Deisi Deisi, 1 DEISI INH TID, (Reported) Ascorbic Acid (Ascorbic Acid) 500 Mg Tab, 500 MG PO DAILY, (Reported) Clopidogrel Bisulfate (Clopidogrel) 75 Mg Tab, 75 MG PO DAILY, (Reported) Cyanocobalamin (Vitamin B12) 1,000 Mcg Tab, 1,000 MCG PO DAILY, (Reported) Folic Acid (Folic Acid) 1 Mg Tab, 1 MG PO DAILY, (Reported) Furosemide (Furosemide) 20 Mg Tab, 20 MG PO DAILY, (Reported) Guaifenesin (Mucinex) 600 Mg Tab, 600 MG PO BID Levofloxacin Hemihydrate (Levaquin) 750 Mg Tab, 750 MG PO Q2D@0600 To be taken on 12/23/16 Metoprolol Succinate (Metoprolol Succinate ER) 25 Mg Tab, 12.5 MG PO DAILY Potassium Chloride (Klor-Con M10) 10 Meq Tabcr, 10 MEQ PO DAILY, (Reported) Prednisone (Prednisone) 5 Mg Tab, 5 MG PO QPM, (Reported) DINNER TIME Prednisone (Prednisone) 10 Mg Tab, 10 MG PO TAPER Take 4 tabs daily x 3 days, then 3 tabs daily x 3 days, then 2 tabs daily x 3 days, then 1 tab daily x 3 days and stop Ramipril (Ramipril) 10 Mg Cap, 10 MG PO DAILY, (Reported) Tamsulosin Hydrochloride (Flomax) 0.4 Mg Cap, 0.4 MG PO QPM, (Reported) DINNER TIME Scheduled PRN Acetaminophen (Acetaminophen) 325 Mg Tab, 650 MG PO Q6H PRN for PAIN, (Reported) Allergies Coded Allergies: Celecoxib (Verified Allergy, Unknown, 10/21/12) Codeine (Verified Adverse Reaction, Mild, NAUSEATED, 10/21/12) ZACARIAS MATTHEW MD Dec 22, 2016 14:27
[2016-12-22] MEDS: ATORVASTATIN 10 MG TAB PO SCH (20:41)
[2016-12-22] MEDS: TAMSULOSIN 0.4 MG CAP PO SCH (20:41)
[2016-12-22 22:00] VITALS: BP 148/62
[2016-12-22] MEDS: ACETAMINOPHEN TAB 650MG DOSE (2X325MG) PO PRN (23:23)
[2016-12-23] MEDS: IPRATROPIUM 0.5MG/ALBUTEROL 2.5MG INH SOL UD 3ML (DUONEB)(J7620) NEB SCH ×4 (04:00→11:35)
[2016-12-23] MEDS: methylPREDNISolone INJ 125 MG/2 ML VIAL (J2930) IV SCH (05:59)
[2016-12-23] MEDS: SLF 3 ML SYR IV SCH (05:59)
[2016-12-23] MEDS: LevoFLOXacin 750 MG TABLET PO SCH (05:59)
[2016-12-23 06:00] VITALS: BP 150/78
[2016-12-23 06:19] LABS: EOS % 0.1 % (0.0-3.0); LARGE UNSTAINED CELL # 0.1 K/mm3 (0.0-0.4); LARGE UNSTAINED CELL % 0.6 % (0.0-4.0); LYMPH # 0.2 K/mm3 (1.5-4.5); LYMPH % 1.5 % (24.0-44.0); MEAN CORPUSCULAR HEMOGLOBIN 32.5 pg (27.0-33.0); MEAN CORPUSCULAR HGB CONC 31.1 g/dl (32.0-36.5); MEAN CORPUSCULAR VOLUME 104.6 fl (80.0-96.0); MONO # 0.5 K/mm3 (0.0-0.8); MONO % 4.9 % (0.0-5.0); NEUTROPHILS # 9.1 K/mm3 (1.8-7.7); NEUTROPHILS % 92.9 % (36.0-66.0); PLATELET COUNT, AUTOMATED 296 k/mm3 (150-450); RED CELL DISTRIBUTION WIDTH 12.3 % (11.5-14.5); WHITE BLOOD COUNT 9.8 K/mm3 (4.0-10.0)
[2016-12-23 06:30] LABS: ANION GAP 3 MEQ/L (8-16); BLOOD UREA NITROGEN 52 MG/DL (7-18); CALCIUM LEVEL 8.8 MG/DL (8.8-10.2); CARBON DIOXIDE LEVEL 40 MEQ/L (21-32); CHLORIDE LEVEL 99 MEQ/L (98-107); CREATININE FOR GFR 1.19 MG/DL (0.70-1.30); GLOMERULAR FILTRATION RATE > 60.0 (>35); GLUCOSE, FASTING 181 MG/DL (83-110); MAGNESIUM LEVEL 2.4 MG/DL (1.8-2.4); SODIUM LEVEL 142 MEQ/L (136-145)
[2016-12-23 06:31] LABS: POTASSIUM SERUM 5.4 MEQ/L (3.5-5.1)
[2016-12-23] MEDS: guaiFENesin ER 600 MG TAB PO SCH (11:11)
[2016-12-23] MEDS: ASCORBIC ACID 500 MG TAB PO SCH (11:11)
[2016-12-23] MEDS: FOLIC ACID 1 MG TAB PO SCH (11:11)
[2016-12-23] MEDS: CYANOCOBALAMIN 500 MCG TAB PO SCH (11:11)
[2016-12-23] MEDS: CLOPIDOGREL 75 MG TAB PO SCH (11:11)
[2016-12-23] MEDS: ENOXAPARIN 40 MG/0.4 ML SYRINGE (J1650) SC SCH (11:12)
[2016-12-23 11:14] VITALS: BP 150/78
[2016-12-23] MEDS: METOPROLOL SUCC *XL* 12.5MG PER 1/2 TAB (TopROL *XL*) PO SCH (11:14)
[2016-12-23] MEDS: RAMIPRIL 5 MG CAP PO SCH (11:14)
--- NOTE | 2016-12-23 18:34 | DSES ---
DATE OF ADMISSION: 12/16/2016 DATE OF DISCHARGE: 12/23/2016 ADDENDUM TO DISCHARGE SUMMARY Patient was evaluated and determined medically stable for discharge on 12/22/2016; however, patient still required a few physical therapy trainings. Therefore, patient was re-evaluated by physical therapy on 12/23/2016 and patient was cleared for discharge with home services. VITAL SIGNS: Temperature 97.9, pulse 77, respirations 19, blood pressure 150/78, pulse oximetry 99% with 4 liters nasal cannula (that is patient's baseline oxygen requirement) GENERAL: No signs of acute distress. Alert, awake, oriented. HEENT: Normocephalic, atraumatic. Extraocular motor grossly intact. CARDIOVASCULAR: Positive S1, S2. Regular rate. LUNGS: Clear to auscultation bilaterally. ABDOMEN: Soft, nondistended. Bowel sounds present. EXTREMITIES: No edema. No cyanosis. LABORATORY DATA: WBC 9.8, hemoglobin 10.2, hematocrit 32.7, platelet count 296. Sodium 142, potassium 5.4, chloride 99, carbon dioxide 40, BUN 52, creatinine 1.19, GFR greater than 60, fasting glucose 181, calcium 8.8, magnesium 2.4. DISCHARGE DIAGNOSES: 1. Sepsis secondary to community-acquired pneumonia. 2. Advanced chronic obstructive pulmonary disease (COPD) with exacerbation on recovery 4 liters nasal cannula at home. 3. History of coronary artery disease status post percutaneous coronary intervention (PCI). 4. Hypertension. 5. Questionable history of congestive heart failure (CHF). 6. History of left lung cancer status post resection. 7. History of transient ischemic attack (TIA). 8. History of benign prostatic hypertrophy.
== END 2016-12-23 13:50 | disposition home health service (06) | DRG 871 ==
LOC: M ED 20:41 → M ED INP 20:42 → M PCU 21:48 → M MSPAV 12-18 20:20
PROVIDERS: ADMIT Hospitalist; ATTEND Internal Medicine
DX: A41.9 Sepsis, unspecified organism (principal); J18.9 Pneumonia, unspecified organism; J44.1 Chronic obstructive pulmonary disease with (acute) exacerbation; J96.11 Chronic respiratory failure with hypoxia; J44.0 Chronic obstructive pulmonary disease with (acute) lower respiratory infection; Z99.81 Dependence on supplemental oxygen; I10 Essential (primary) hypertension; N40.0 Benign prostatic hyperplasia without lower urinary tract symptoms; I25.10 Atherosclerotic heart disease of native coronary artery without angina pectoris; Z86.73 Personal history of transient ischemic attack (TIA), and cerebral infarction without residual deficits; Z95.9 Presence of cardiac and vascular implant and graft, unspecified; Z92.3 Personal history of irradiation; Z85.46 Personal history of malignant neoplasm of prostate; Z85.828 Personal history of other malignant neoplasm of skin; Z90.49 Acquired absence of other specified parts of digestive tract; Z80.9 Family history of malignant neoplasm, unspecified; Z85.118 Personal history of other malignant neoplasm of bronchus and lung; I25.2 Old myocardial infarction; Z87.891 Personal history of nicotine dependence; Z88.5 Allergy status to narcotic agent; Z88.8 Allergy status to other drugs, medicaments and biological substances; Z79.52 Long term (current) use of systemic steroids; Z79.899 Other long term (current) drug therapy